=== PATIENT | female | born 1955 | race American Indian/Alaskan Native ===

== ENCOUNTER 2019-03-17 12:29 | Inpatient (IN) | payer BC ==
--- NOTE | 2019-03-17 14:47 | Emergency Department Report ---
ED Neuro Deficit HPI - General Chief Complaint: Dizziness Stated Complaint: DIZZY,BLURRED VISION Time Seen by Provider: 03/17/19 14:36 Source: patient, EMS Mode of arrival: Stretcher Limitations: No Limitations - History of Present Illness Initial Comments: Patient is 63 years old female with past medical history of asthma. Patient brought to the emergency room via EMS from home for evaluation of dizziness, ataxia and blurred vision started all of a sudden yesterday at 4 PM. Patient denied any weakness, numbness or tingling sensation. No slurred speech or aphasia. This and also denied any headache, fever or chills. No recent head injury. -: Last night (04:00 PM) Location: ataxia Presenting Symptoms: Present: Blurred/Loss of Vision History of same: No Place: home - Related Data Home Medications: Home Medications Medication Instructions Recorded Confirmed Last Taken Ibuprofen 800 mg PO BID 03/17/19 03/17/19 Unknown Montelukast 10 mg PO DAILY 03/17/19 03/17/19 Unknown Paroxetine 20 mg PO DAILY 03/17/19 03/17/19 Unknown Allergies/Adverse Reactions: Allergies Allergy/AdvReac Type Severity Reaction Status Date / Time coconut Allergy Anaphylaxis Verified 03/17/19 12:52 Sulfa (Sulfonamide Allergy Itching Verified 03/17/19 12:52 Antibiotics) tree nut Allergy Anaphylaxis Verified 03/17/19 12:52 ED Review of Systems ROS: Stated complaint: DIZZY,BLURRED VISION Other details as noted in HPI Comment: All other systems reviewed and negative Constitutional: denies: chills, fever Respiratory: denies: cough, shortness of breath, SOB with exertion, SOB at rest, wheezing Cardiovascular: denies: chest pain, palpitations Gastrointestinal: denies: abdominal pain, nausea, vomiting Neurological: denies: headache, weakness ED Past Medical Hx - Past Medical History Previous Medical History?: Yes Hx Asthma: Yes - Surgical History Past Surgical History?: Yes Additional Surgical History: Catarac, Hammer toe surgery, L ovary and L fallopian tube (1987) - Social History Smoking Status: Never Smoker Substance Use Type: None - Medications Home Medications: Home Medications Medication Instructions Recorded Confirmed Last Taken Type Ibuprofen 800 mg PO BID 03/17/19 03/17/19 Unknown History Montelukast 10 mg PO DAILY 12/22/19 12/22/19 Unknown History Paroxetine 20 mg PO DAILY 03/17/19 03/17/19 Unknown History ED Neuro Physical Exam - General Limitations: No Limitations General appearance: alert, in no apparent distress Suspected Stroke: Yes - Head Head exam: Present: atraumatic, normocephalic, normal inspection - Eye Eye exam: Present: normal appearance, PERRL - ENT ENT exam: Present: normal exam, normal orophraynx, mucous membranes moist - Neck Neck exam: Present: normal inspection, full ROM. Absent: tenderness, meningismus, lymphadenopathy, thyromegaly - Respiratory Respiratory exam: Present: normal lung sounds bilaterally - Cardiovascular Cardiovascular Exam: Present: regular rate, normal rhythm, normal heart sounds - GI/Abdominal GI/Abdominal exam: Present: soft, normal bowel sounds. Absent: distended, tenderness, guarding, rebound, rigid, organomegaly, mass, bruit, pulsatile mass, hernia - Extremities Exam Extremities exam: Present: normal inspection, full ROM, normal capillary refill. Absent: tenderness, pedal edema, joint swelling, calf tenderness - Back Exam Back exam: Present: normal inspection, full ROM. Absent: CVA tenderness (R), CVA tenderness (L) - Neurological Exam Neurological exam: Present: alert, oriented X3, CN II-XII intact. Absent: motor sensory deficit - NIHSS Assessment Interval: Baseline 1a. Level of Consciousness: alert/keenly responsive 1b. LOC Questions: answers both correctly 1c. LOC Commands: performs tasks correctly 2. Best Gaze: normal 3. Visual: no visual loss 4. Facial Palsy: normal symmetrical movement 5b. Motor Arm Right: no drift 5a. Motor Arm Left: no drift 6a. Motor Leg Left: no drift 6b. Motor Leg Right: no drift 7. Limb Ataxia: present 1 limb 8. Sensory: normal 9. Best Language: no aphasia 10. Dysarthria: normal 11. Extinction/Inattention: no abnormality Total Score: 1 Stroke Severity: Minor Stroke - Psychiatric Psychiatric exam: Present: normal mood - Skin Skin exam: Present: warm, intact, normal color ED Course Vital Signs 03/17/19 03/17/19 03/17/19 12:53 13:26 18:45 Temperature 98.1 F Pulse Rate 62 70 Respiratory 13 14 Rate Blood Pressure 139/76 135/85 [Left] O2 Sat by Pulse 96 Oximetry - Lab Data Result diagrams: 03/17/19 15:10 03/17/19 15:10 Lab Results 03/17/19 03/17/19 03/17/19 Range/Units 14:58 15:10 15:10 WBC 5.7 (4.5-11.0) K/mm3 RBC 5.19 H (3.65-5.03) M/mm3 Hgb 12.5 (10.1-14.3) gm/dl Hct 39.3 (30.3-42.9) % MCV 76 L (79-97) fl MCH 24 L (28-32) pg MCHC 32 (30-34) % RDW 15.8 H (13.2-15.2) % Plt Count 216 (140-440) K/mm3 Lymph % (Auto) 29.6 (13.4-35.0) % [place] % (Auto) 7.4 H (0.0-7.3) % Eos % (Auto) 2.5 (0.0-4.3) % Baso % (Auto) 1.5 (0.0-1.8) % Lymph # 1.7 (1.2-5.4) K/mm3 [place] # 0.4 (0.0-0.8) K/mm3 Eos # 0.1 (0.0-0.4) K/mm3 Baso # 0.1 (0.0-0.1) K/mm3 Seg Neutrophils % 59.0 (40.0-70.0) % Seg Neutrophils # 3.4 (1.8-7.7) K/mm3 PT 12.7 (12.2-14.9) Sec. INR 0.94 (0.87-1.13) APTT 27.9 (24.2-36.6) Sec. Thrombin Time 17.1 (15.1-19.6) Sec. Sodium (137-145) mmol/L Potassium (3.6-5.0) mmol/L Chloride (98-107) mmol/L Carbon Dioxide (22-30) mmol/L Anion Gap mmol/L BUN (7-17) mg/dL Creatinine (0.7-1.2) mg/dL Estimated GFR ml/min BUN/Creatinine Ratio % Glucose (65-100) mg/dL POC Glucose 121 H (70-105) Calcium (8.4-10.2) mg/dL Total Creatine Kinase (30-135) units/L CK-MB (CK-2) (0.0-4.0) ng/mL CK-MB (CK-2) Rel Index (0-4) Troponin T (0.00-0.029) ng/mL 03/17/19 Range/Units 15:10 WBC (4.5-11.0) K/mm3 RBC (3.65-5.03) M/mm3 Hgb (10.1-14.3) gm/dl Hct (30.3-42.9) % MCV (79-97) fl MCH (28-32) pg MCHC (30-34) % RDW (13.2-15.2) % Plt Count (140-440) K/mm3 Lymph % (Auto) (13.4-35.0) % [place] % (Auto) (0.0-7.3) % Eos % (Auto) (0.0-4.3) % Baso % (Auto) (0.0-1.8) % Lymph # (1.2-5.4) K/mm3 [place] # (0.0-0.8) K/mm3 Eos # (0.0-0.4) K/mm3 Baso # (0.0-0.1) K/mm3 Seg Neutrophils % (40.0-70.0) % Seg Neutrophils # (1.8-7.7) K/mm3 PT (12.2-14.9) Sec. INR (0.87-1.13) APTT (24.2-36.6) Sec. Thrombin Time (15.1-19.6) Sec. Sodium 142 (137-145) mmol/L Potassium 3.9 (3.6-5.0) mmol/L Chloride 106.4 (98-107) mmol/L Carbon Dioxide 25 (22-30) mmol/L Anion Gap 15 mmol/L BUN 16 (7-17) mg/dL Creatinine 0.8 (0.7-1.2) mg/dL Estimated GFR > 60 ml/min BUN/Creatinine Ratio 20 % Glucose 118 H (65-100) mg/dL POC Glucose (70-105) Calcium 9.0 (8.4-10.2) mg/dL Total Creatine Kinase 464 H (30-135) units/L CK-MB (CK-2) 2.6 (0.0-4.0) ng/mL CK-MB (CK-2) Rel Index 0.5 (0-4) Troponin T < 0.010 (0.00-0.029) ng/mL - EKG Data -: EKG Interpreted by Me EKG shows normal: sinus rhythm Rate: normal Interpretation: no acute changes - Radiology Data Radiology results: report reviewed - Medical Decision Making Patient is 63 years old female with past medical history of asthma. Patient brought to the emergency room via EMS from home for evaluation of dizziness, ataxia and blurred vision started all of a sudden yesterday at 4 PM. Patient denied any weakness, numbness or tingling sensation. No slurred speech or aphasia. This and also denied any headache, fever or chills. No recent head injury. Tele-neurology immediately consulted. Patient is not a TPA candidate. CT brain, CTA neck and head are negative for acute finding. Patient will be admitted to hospital for further management. I discussed the patient with Dr. Romero, handwritten admitted the patient to medical service for further management. - Thrombolytic Inclusion/Exclusion Thrombolytic Exclusion Criteria: Symptom Onset > 3 Hours Critical Care Time: Yes Critical care time in (mins) excluding proc time.: 30 Critical care attestation.: If time is entered above; I have spent that time in minutes in the direct care of this critically ill patient, excluding procedure time. ED Disposition Clinical Impression: Dizziness CVA (cerebral vascular accident) Qualifiers: Laterality of affected vessel: unspecified Disposition: -09 OP ADMIT IP TO THIS HOSP Is pt being admited?: Yes Condition: Stable
--- NOTE | 2019-03-17 15:01 | Emergency Department Report ---
ED Dizziness HPI - General Chief Complaint: Dizziness Stated Complaint: DIZZY,BLURRED VISION Time Seen by Provider: 03/17/19 14:36 Source: patient, family, EMS Mode of arrival: Stretcher Limitations: No Limitations - History of Present Illness Initial Comments: [facility] Date of Service: 03/17/2019 14:42:37 Impression: RO Acute Ischemic Stroke Comments: The patient has double/blurry vision since the night before, she has not been doing well. She has recently retired and celebrated yesterday with blurred vision tongight. CT head, negative as well as CTA head/neck is negative. Mechanism of Stroke: Possible Thromboembolic Metrics: Last Known Well: 03/16/2019 14:47:49 [employer] Notification Time: 03/17/2019 14:42:37 Arrival Time: 03/17/2019 12:29:00 Stamp Time: 03/17/2019 14:42:37 Time First Login Attempt: 03/17/2019 14:46:33 Video Start Time: 03/17/2019 14:46:33 Symptoms: @4pm yesterday she was feeling dizzy and was holding onto things NIHSS Start Assessment Time: 03/17/2019 14:47:35 Patient is not a candidate for tPA. Video End Time: 03/17/2019 14:58:52 CT head showed no acute hemorrhage or acute core infarct. Advanced imaging CTA head and neck obtained. Radiologist was called back for review of advanced imaging on 03/17/2019 14:48:02 ER Physician notified of the decision on thrombolytics management on 03/17/2019 14:48:00 Our recommendations are outlined below. Recommendations: Activate Stroke Protocol Admission/Order Set Stroke/Telemetry Floor Neuro Checks Bedside Swallow Eval DVT Prophylaxis IV Fluids, Normal Saline Head of Bed Below 30 Degrees Euglycemia and Avoid Hyperthermia (PRN Acetaminophen) Lipid Panel to Be Obtained, if Not Done in the Last Three Months Therapies: Physical Therapy, Occupational Therapy, Speech Therapy Assessment When Applicable Dysphaghia Screen: Swallow Evaluation, Bedside NPO Until Swallow Evaluation History of Present Illness: Patient is a 63 year old Female. Patient was brought by EMS for symptoms of @4pm yesterday she was feeling dizzy and was holding onto things She was tired, and this morning she felt that her vision was blurred, and blue cross blue shield. brought her to the emergency department. She retired, two days ago. She is a intermediate school teacher. CT head showed no acute hemorrhage or acute core infarct. Last seen normal was beyond 4.5 hours of presentation. There is no history of hemorrhagic complications or intracranial hemorrhage. There is no history of Recent Anticoagulants. There is no history of recent major surgery. There is no history of recent stroke. Examination: BP(139/76), Pulse(62), Blood Glucose(121) 1A: Level of Consciousness - Alert; keenly responsive + 0 1B: Ask Month and Age - Both Questions Right + 0 1C: Blink Eyes & Squeeze Hands - Performs Both Tasks + 0 2: Test Horizontal Extraocular Movements - Normal + 0 3: Test Visual Hirsch - No Visual Loss + 0 4: Test Facial Palsy (Use Grimace if Obtunded) - Normal symmetry + 0 5A: Test Left Arm Motor Drift - No Drift for 10 Seconds + 0 5B: Test Right Arm Motor Drift - No Drift for 10 Seconds + 0 6A: Test Left Leg Motor Drift - No Drift for 5 Seconds + 0 6B: Test Right Leg Motor Drift - Drift, but doesn't hit bed + 1 7: Test Limb Ataxia (FNF/Heel-Basurto) - No Ataxia + 1 8: Test Sensation - Normal; No sensory loss + 0 9: Test Language/Aphasia - Normal; No aphasia + 0 10: Test Dysarthria - Normal + 0 11: Test Extinction/Inattention - No abnormality + 0 NIHSS Score: 2 Patient was informed the Neurology Consult would happen via TeleHealth consult b y way [employer] and consented to receiving care in this manner. Due to the immediate potential for life-threatening deterioration due to underlying acute neurologic illness, I spent 35 minutes providing critical care. This time includes time for face to face visit via telemedicine, review of medical records, imaging studies and discussion of findings with providers, the patient and/or family. Dr Drew [facility] - Related Data Home Medications Medication Instructions Recorded Confirmed Last Taken Ibuprofen 800 mg PO BID 03/17/19 03/17/19 Unknown Montelukast 10 mg PO DAILY 03/17/19 03/17/19 Unknown Paroxetine 20 mg PO DAILY 03/17/19 03/17/19 Unknown Allergies Allergy/AdvReac Type Severity Reaction Status Date / Time coconut Allergy Anaphylaxis Verified 03/17/19 12:52 Sulfa (Sulfonamide Allergy Itching Verified 03/17/19 12:52 Antibiotics) tree nut Allergy Anaphylaxis Verified 03/17/19 12:52 ED Review of Systems ROS: Stated complaint: DIZZY,BLURRED VISION Other details as noted in HPI Constitutional: denies: chills, fever Respiratory: denies: cough, shortness of breath, SOB with exertion, SOB at rest, wheezing Cardiovascular: denies: chest pain, palpitations Gastrointestinal: denies: abdominal pain, nausea, vomiting Neurological: denies: headache, weakness ED Past Medical Hx - Past Medical History Previous Medical History?: Yes Hx Asthma: Yes - Surgical History Past Surgical History?: Yes Additional Surgical History: Catarac, Hammer toe surgery, L ovary and L fallopian tube (1987) - Social History Smoking Status: Never Smoker Substance Use Type: None - Medications Home Medications: Home Medications Medication Instructions Recorded Confirmed Last Taken Type Ibuprofen 800 mg PO BID 03/17/19 03/17/19 Unknown History Montelukast 10 mg PO DAILY 03/17/19 03/17/19 Unknown History Paroxetine 20 mg PO DAILY 03/17/19 03/17/19 Unknown History ED Physical Exam - General Limitations: No Limitations General appearance: alert, in no apparent distress ED Course Vital Signs 03/17/19 03/17/19 03/17/19 12:53 13:26 18:45 Temperature 98.1 F Pulse Rate 62 70 Respiratory 13 14 Rate Blood Pressure 139/76 135/85 [Left] O2 Sat by Pulse 96 Oximetry ED Medical Decision Making - Lab Data Result diagrams: 03/17/19 15:10 03/17/19 15:10 Critical care attestation.: If time is entered above; I have spent that time in minutes in the direct care of this critically ill patient, excluding procedure time. ED Disposition Clinical Impression: CVA (cerebral vascular accident), Dizziness Disposition: [id number] OP ADMIT IP TO THIS HOSP Condition: Stable
--- NOTE | 2019-03-17 15:39 | Cat Scan Report ---
CT head/brain wo con INDICATION / CLINICAL INFORMATION: 63 years Female; Stroke symptoms. TECHNIQUE: Routine CT head without contrast. All CT scans at this location are performed using CT dos e reduction for ALARA by means of automated exposure control. COMPARISON: None. FINDINGS: BRAIN / INTRACRANIAL CONTENTS: No acute hemorrhage, mass effect, midline shift, hydrocephalus, or acu te, large territorial infarct. No chronic infarct or atrophy appreciated. There are minimal areas of increased signal intensity on FLAIR imaging in the white matter of the cer ebral hemispheres. These are nonspecific findings and may be related to microangiopathy (hypertension , diabetes, atherosclerosis), given the patient's age. CRANIOCERVICAL JUNCTION: No significant abnormality. ORBITS: No significant abnormality of visualized orbits. SINUSES / MASTOIDS: No significant abnormality the visualized paranasal sinuses or mastoid air cells. ADDITIONAL FINDINGS: Gas seen in the left cavernous sinus, presumably related to IV placement. IMPRESSION: 1. No focal mass, hemorrhage, hydrocephalus, or acute, large territorial infarct. This exam was performed as part of a code stroke protocol. The exam was completed on 03/17/2019 2:28 PM. The exam was reviewed at 2:30 PM and Boaz was notified at 2:34 PM. Signer Name: Kamron Levi MD, III Signed: 03/17/2019 3:34 PM Workstation Name: [id number]
[2019-03-17 15:46] LABS: Creatine Kinase MB 2.6 ng/mL (0.0-4.0)
[2019-03-17 15:47] LABS: BUN/Creatinine Ratio 20; Blood Urea Nitrogen 16 mg/dL (7-17); Hemolysis Index 29
[2019-03-17 15:54] LABS: Basophils # (Auto) 0.1 K/mm3 (0.0-0.1); Basophils % (Auto) 1.5 % (0.0-1.8); Eosinophils # (Auto) 0.1 K/mm3 (0.0-0.4); Eosinophils % (Auto) 2.5 % (0.0-4.3); Hematocrit 39.3 % (30.3-42.9); Hemoglobin 12.5 gm/dl (10.1-14.3); Lymphocytes # (Auto) 1.7 K/mm3 (1.2-5.4); Lymphocytes % (Auto) 29.6 % (13.4-35.0); Mean Corpuscular HGB Conc 32 % (30-34); Mean Corpuscular Volume 76 fl (79-97); Monocytes # (Auto) 0.4 K/mm3 (0.0-0.8); Monocytes % (Auto) 7.4 % (0.0-7.3); Platelet Count 216 K/mm3 (140-440); Red Blood Count 5.19 M/mm3 (3.65-5.03); Red Cell Distribution Width 15.8 % (13.2-15.2)
[2019-03-17 16:04] LABS: INR 0.94 (0.87-1.13)
[2019-03-17 16:05] LABS: Partial Thromboplastin Time 27.9 Sec. (24.2-36.6); Thrombin Time 17.1 Sec. (15.1-19.6)
--- NOTE | 2019-03-17 16:19 | Progress Note ---
Subjective Date of service: 03/17/19 Interval history: strokle alert and spoke with tech's as patient observed to have AMS sent to CT after delay amnf review of CT shoes nothing but mild frontal cortical atrophy that is lkely normal for age hx is patient recently retired further work up pending reviewed the images with compressor technician after image system directly further asses post ED determinations etc. Objective - Vital Sign Vital Signs - 12hr 03/17/19 03/17/19 12:53 13:26 Temperature 98.1 F Pulse Rate 62 Respiratory 13 14 Rate Blood Pressure 139/76 [Left] O2 Sat by Pulse 96 Oximetry - Laboratory Findings CBC and BMP: 03/17/19 15:10 03/17/19 15:10 Abnormal Lab Findings: Abnormal Labs 03/17/19 03/17/19 03/17/19 14:58 15:10 15:10 RBC 5.19 H MCV 76 L MCH 24 L RDW 15.8 H [place] % (Auto) 7.4 H Glucose 118 H POC Glucose 121 H Total Creatine Kinase 464 H
--- NOTE | 2019-03-17 16:25 | Cat Scan Report ---
CT angio head INDICATION / CLINICAL INFORMATION: 63 years Female; MAIN: stroke [id number] 100ML. TECHNIQUE: Thin cut axial images obtained through the head during IV bolus contrast administration. S agittal, coronal, and 3 plane MIP reconstructions performed by the technologist. NASCET type criteria used evaluate stenoses. Automated exposure control utilized for radiation reduction purposes. COMPARISON: None available. FINDINGS: INTERNAL CAROTID ARTERIES: No significant narrowing appreciated. VERTEBROBASILAR SYSTEM: No significant narrowing appreciated. DISTAL BRANCHES: Distal branches of the anterior, middle, and posterior cerebral arteries are fairly symmetric in appearance and number. ANEURYSM: None identified. ADDITIONAL FINDINGS: Remainder of the surrounding soft tissues are grossly normal. IMPRESSION: No significant narrowing appreciated on this CTA of the head. Signer Name: Kamron Levi MD, III Signed: 03/17/2019 4:21 PM Workstation Name: [id number]
--- NOTE | 2019-03-17 16:28 | Cat Scan Report ---
CT angio neck INDICATION / CLINICAL INFORMATION: 63 years Female; stroke. TECHNIQUE: Thin cut axial images obtained through the head during IV bolus contrast administration. S agittal, coronal, and 3 plane MIP reconstructions performed by the technologist. NASCET type criteria used evaluate stenoses. All CT scans at this location are performed using CT dose reduction for ALAR A by means of automated exposure control. COMPARISON: None available. FINDINGS: ARCH: Normal aortic arch branching seen. Note, the left vertebral artery has its origin from the aort ic arch, proximal to the origin of the subclavian artery-normal variant. CAROTID ARTERIES: The visualized common and internal carotid arteries are widely patent. VERTEBRAL ARTERIES: Codominant vertebral system seen. No significant stenosis appreciated. ADDITIONAL FINDINGS: Remainder of the surrounding soft tissues are grossly normal. Small gas bubbles are seen in the left cavernous sinus, presumably related to recent IV placement. IMPRESSION: No significant stenosis appreciated on this CTA of the neck. Signer Name: Kamron Levi MD, III Signed: 03/17/2019 4:23 PM Workstation Name: [id number]
--- NOTE | 2019-03-17 21:47 | History and Physical Report ---
"History of Present Illness Date of examination: 03/17/19 Date of admission: 03/17/19 17:22 Chief complaint: Dizziness and unsteady gait since yesterday for 4 p.m. History of present illness: 63-year-old female with history of asthma comes to the emergency room for di zziness and unsteady gait and blurring of vision since yesterday at 4 PM. No slurred speech. No nasal regurgitation of fluids. No syncope or seizures. Now patient able to walk slowly. No slurred speech. No diplopia. Past Medical History Previous Medical History?: Yes Hx Asthma: Yes Surgical History Past Surgical History?: Yes Additional Surgical History: Catarac, Hammer toe surgery, L ovary and L fallopian tube (1987) Social History Smoking Status: Never Smoker Substance Use Type: None Family History Htn Review of Systems ROS: Stated complaint: DIZZY,BLURRED VISION Other details as noted in HPI Comment: All other systems reviewed and negative Constitutional: denies: chills, fever Respiratory: denies: cough, shortness of breath, SOB with exertion, SOB at rest, wheezing Cardiovascular: denies: chest pain, palpitations Gastrointestinal: denies: abdominal pain, nausea, vomiting Neurological: denies: headache, weakness 14 point review of systems done- otherwise negative Medications and Allergies Allergies Allergy/AdvReac Type Severity Reaction Status Date / Time coconut Allergy Anaphylaxis Verified 03/17/19 12:52 Sulfa (Sulfonamide Allergy Itching Verified 03/17/19 12:52 Antibiotics) tree nut Allergy Anaphylaxis Verified 03/17/19 12:52 Home Medications Medication Instructions Recorded Confirmed Last Taken Type Ibuprofen 800 mg PO BID 03/17/19 03/17/19 Unknown History Montelukast 10 mg PO DAILY 03/17/19 03/17/19 Unknown History Paroxetine 20 mg PO DAILY 03/17/19 03/17/19 Unknown History Exam - Constitutional Vitals: Temp Pulse Resp BP Pulse Ox 98.3 F 64 16 121/73 96 03/17/19 20:14 03/17/19 20:14 03/17/19 20:14 03/17/19 20:14 03/17/19 20:14 General appearance: Present: no acute distress, well-nourished - EENT Eyes: Present: PERRL ENT: hearing intact, clear oral mucosa - Neck Neck: Present: supple, normal ROM - Respiratory Respiratory effort: normal Respiratory: bilateral: CTA - Cardiovascular Heart rate: 62 Rhythm: regular Heart Sounds: Present: S1 & S2. Absent: rub, click - Extremities Extremities: no ischemia, pulses intact, pulses symmetrical, No edema Peripheral Pulses: within normal limits - Abdominal General gastrointestinal: Present: soft, non-tender, non-distended, normal bowel sounds Female genitourinary: Present: normal - Rectal Rectal Exam: deferred - Integumentary Integumentary: Present: clear, warm, dry - Musculoskeletal Musculoskeletal: gait normal, strength equal bilaterally - Psychiatric Psychiatric: appropriate mood/affect, intact judgment & insight - Neurologic Neurologic: CNII-XII intact, moves all extremities - Allied Health Allied health notes reviewed: nursing, case management Results - Labs CBC & Chem 7: 03/17/19 15:10 03/17/19 15:10 Labs: Laboratory Last Values WBC 5.7 K/mm3 (4.5-11.0) 03/17/19 15:10 RBC 5.19 M/mm3 (3.65-5.03) H 03/17/19 15:10 Hgb 12.5 gm/dl (10.1-14.3) 03/17/19 15:10 Hct 39.3 % (30.3-42.9) 03/17/19 15:10 MCV 76 fl (79-97) L 03/17/19 15:10 MCH 24 pg (28-32) L 03/17/19 15:10 MCHC 32 % (30-34) 03/17/19 15:10 RDW 15.8 % (13.2-15.2) H 03/17/19 15:10 Plt Count 216 K/mm3 (140-440) 03/17/19 15:10 Lymph % (Auto) 29.6 % (13.4-35.0) 03/17/19 15:10 [place] % (Auto) 7.4 % (0.0-7.3) H 03/17/19 15:10 Eos % (Auto) 2.5 % (0.0-4.3) 03/17/19 15:10 Baso % (Auto) 1.5 % (0.0-1.8) 03/17/19 15:10 Lymph # 1.7 K/mm3 (1.2-5.4) 03/17/19 15:10 [place] # 0.4 K/mm3 (0.0-0.8) 03/17/19 15:10 Eos # 0.1 K/mm3 (0.0-0.4) 03/17/19 15:10 Baso # 0.1 K/mm3 (0.0-0.1) 03/17/19 15:10 Seg Neutrophils % 59.0 % (40.0-70.0) 03/17/19 15:10 Seg Neutrophils # 3.4 K/mm3 (1.8-7.7) 03/17/19 15:10 PT 12.7 Sec. (12.2-14.9) 03/17/19 15:10 INR 0.94 (0.87-1.13) 03/17/19 15:10 APTT 27.9 Sec. (24.2-36.6) 03/17/19 15:10 Thrombin Time 17.1 Sec. (15.1-19.6) 03/17/19 15:10 Sodium 142 mmol/L (137-145) 03/17/19 15:10 Potassium 3.9 mmol/L (3.6-5.0) 03/17/19 15:10 Chloride 106.4 mmol/L (98-107) 03/17/19 15:10 Carbon Dioxide 25 mmol/L (22-30) 03/17/19 15:10 Anion Gap 15 mmol/L 03/17/19 15:10 BUN 16 mg/dL (7-17) 03/17/19 15:10 Creatinine 0.8 mg/dL (0.7-1.2) 03/17/19 15:10 Estimated GFR > 60 ml/min 03/17/19 15:10 BUN/Creatinine Ratio 20 % 03/17/19 15:10 Glucose 118 mg/dL (65-100) H 03/17/19 15:10 POC Glucose 121 (70-105) H 03/17/19 14:58 Calcium 9.0 mg/dL (8.4-10.2) 03/17/19 15:10 Total Creatine Kinase 464 units/L (30-135) H 03/17/19 15:10 CK-MB (CK-2) 2.6 ng/mL (0.0-4.0) 03/17/19 15:10 CK-MB (CK-2) Rel Index 0.5 (0-4) 03/17/19 15:10 Troponin T < 0.010 ng/mL (0.00-0.029) 03/17/19 15:10 - Imaging and Cardiology EKG: report reviewed (Sinus rhythm, heart rate of 62/min) CT Scan - head: report reviewed Imaging and Cardiology: Head CT | Neck CTA |------ no acute findings Head CT | Assessment and Plan Advance Directives: Yes (Full code) VTE prophylaxis?: Chemical Plan of care discussed with patient/family: Yes - Patient Problems (1) CVA (cerebral vascular accident) Current Visit: Yes Status: Acute Qualifiers: Laterality of affected vessel: unspecified Plan to address problem: Ataxia resolved Possible TIA TIA work-up MRI ordered MRI of the head and neck normal Echocardiogram Carotid duplex scan ordered Aspirin 81 mg once a day Plavix 75 mg once a day (2) Hyperglycemia Current Visit: Yes Status: Acute Plan to address problem: Rule out diabetes check hemoglobin A1c (3) Asthma Current Visit: Yes Status: Inactive Qualifiers: Asthma complication type: unspecified Plan to address problem: Bronchodilators if necessary (4) DVT prophylaxis Current Visit: Yes Status: Acute Plan to address problem: Heparin and GI prophylaxis initiated"
[2019-03-17] MEDS ORDERED: NON-FORMULARY EACH (Ibuprofen 800 MG) PO SCH (22:15)
[2019-03-17] MEDS: IBUPROFEN 800 MG TAB PO SCH (22:31)
[2019-03-18 07:51] LABS: Chol/HDL Ratio 4.63 %
--- NOTE | 2019-03-18 08:07 | Progress Note ---
Subjective Date of service: 03/18/19 Interval history: patient seen on neurology follow up and at this point all symptoms have cleared vertigo and blurred vision were cc she has hx of hypertension rec get MRI and ECHO could be TIA or brain stem stroke also consider labrynthitis Objective - Vital Sign Vital Signs - 12hr 03/17/19 03/17/19 03/17/19 20:14 22:34 23:15 Temperature 98.3 F 98.2 F Pulse Rate 64 65 Respiratory 16 16 Rate Blood Pressure 121/73 118/69 O2 Sat by Pulse 96 100 97 Oximetry 03/18/19 02:44 Temperature 97.6 F Pulse Rate 60 Respiratory 16 Rate Blood Pressure 133/68 O2 Sat by Pulse 93 Oximetry - Laboratory Findings CBC and BMP: 03/17/19 15:10 03/17/19 15:10 Abnormal Lab Findings: Abnormal Labs 03/17/19 03/17/19 03/17/19 14:58 15:10 15:10 RBC 5.19 H MCV 76 L MCH 24 L RDW 15.8 H [place] % (Auto) 7.4 H Glucose 118 H POC Glucose 121 H Total Creatine Kinase 464 H Cholesterol LDL Cholesterol Direct 03/18/19 06:52 RBC MCV MCH RDW [place] % (Auto) Glucose POC Glucose Total Creatine Kinase Cholesterol 218 H LDL Cholesterol Direct 154 H
[2019-03-18] MEDS ORDERED: NON-FORMULARY EACH (Montelukast 10 MG) PO SCH (10:00)
[2019-03-18] MEDS ORDERED: NON-FORMULARY EACH (Paroxetine 20 MG) PO SCH (10:00)
--- NOTE | 2019-03-18 10:54 | Magnetic Resonance Report ---
MRI BRAIN WITHOUT CONTRAST INDICATION / CLINICAL INFORMATION: stroke. TECHNIQUE: Multisequence, multiplanar images were obtained. COMPARISON: CT head dated 03/17/2019 FINDINGS: CEREBRAL and CEREBELLAR HEMISPHERES: No evidence of mass or mass effect. No midline shift. No acute hemorrhage. No diffusion restriction to suggest acute infarct. No extra-axial fluid collection. M inimal nonspecific chronic white matter changes are identified bilaterally which are most pronounced in the parietal regions. VENTRICLES: Normal in size and configuration for age. VISUALIZED ORBITS: No significant abnormality. VISUALIZED PARANASAL SINUSES: No significant abnormality. ADDITIONAL FINDINGS: None. IMPRESSION: No acute intracranial process. Chronic white matter changes as described above. Signer Name: Felix Cai Jr, MD Signed: 03/18/2019 10:49 AM Workstation Name: [id number]
[2019-03-18] MEDS: IBUPROFEN 800 MG TAB PO SCH ×2 (12:14→22:47)
[2019-03-18] MEDS: PARoxetine 20 MG TAB PO SCH (12:15)
--- NOTE | 2019-03-18 13:31 | Vascular Lab Report ---
"DUPLEX DOPPLER ULTRASOUND CAROTID, BILATERAL INDICATION: stroke. FINDINGS: RIGHT CAROTID: No significant atherosclerotic plaque. Right CCA velocity: 80 cm/sec. Right ICA peak systolic velocity: 92 cm/sec. ICA/CCA PSV Ratio: 1.2. Right Vertebral Artery: Antegrade flow. LEFT CAROTID: No significant atherosclerotic plaque. Left CCA velocity: 68 cm/sec. Left ICA peak systolic velocity: 74 cm/sec. ICA/CCA PSV Ratio: 1.1. Left Vertebral Artery: Antegrade flow. IMPRESSION: 1. Right Internal Carotid Artery: Less than 50% diameter stenosis. 2. Left Internal Carotid Artery: Less than 50% diameter stenosis. Velocity criteria are extrapolated from diameter data as defined by the Society of Radiologists in Ul trasound Consensus Conference, Radiology 2003; 229;340-346. Degree of Stenosis (%) || ICA PSV (cm/sec) || Plaque estimate (%) || ICA/CCA PSV Ratio Normal <125 None <2.0 <50 <125 <50 <2.0 50-69 125-230 50 2.0-4.0 70 but less than 100 >230 50 >4.0 Near occlusion High, low, or none visible variable Total occlusion None visible; no lumen N/A Signer Name: Jersey Blackmon MD Signed: 03/18/2019 1:27 PM Workstation Name: [id number]"
--- NOTE | 2019-03-18 16:18 | Progress Note ---
Subjective Date of service: 03/18/19 Interval history: went over the MRI of the brain and there is no acute infarct this patient can go home provided carotid ultrasound normal and ECHO is OK vertigo likely no stroke neuro exam is normal Objective - Vital Sign Vital Signs - 12hr 03/18/19 03/18/19 07:55 12:18 Temperature 97.6 F Pulse Rate 72 Respiratory 18 18 Rate Blood Pressure 116/85 O2 Sat by Pulse 96 Oximetry - Laboratory Findings CBC and BMP: 03/17/19 15:10 03/17/19 15:10 Abnormal Lab Findings: Abnormal Labs 03/17/19 03/17/19 03/17/19 14:58 15:10 15:10 RBC 5.19 H MCV 76 L MCH 24 L RDW 15.8 H [place] % (Auto) 7.4 H Glucose 118 H POC Glucose 121 H Total Creatine Kinase 464 H Cholesterol LDL Cholesterol Direct 03/18/19 06:52 RBC MCV MCH RDW [place] % (Auto) Glucose POC Glucose Total Creatine Kinase Cholesterol 218 H LDL Cholesterol Direct 154 H
--- NOTE | 2019-03-18 16:22 | Progress Note ---
Assessment and Plan Assessment and plan: --Possible acute CVA (cerebral vascular accident) Current Visit: Yes Status: Acute Not a candidate for TPA . Aspirin,Plavix as well as statin Neurochecks, MRI/MRA Carotid Doppler, echocardiogram Physical therapy occupational therapy and rehabilitation Neurology consult Workup so far: CT head; no focal mass hemorrhage hydrocephalus or acute large infarct MRI brain no acute intracranial abnormality chronic white matter changes CTA head; no significant narrowing CTA neck.: no Significant stenosis --Hyperglycemia Current Visit: Yes Status: Acute Acute sliding scale coverage ADA diet insulin as needed Check A1c --History of bronchial Asthma Current Visit: Yes Status: Inactive Bronchodilators if necessary Oxygen titrate O2 sats to more than 90% --Morbid obesity; BMI 41.4: advised dietary modification and exercise as tolerated and weight reduction when medically stable --DVT prophylaxis Current Visit: Yes Status: Acute Heparin GI prophylaxis Protonix The rest of the neuro workup, PT and OT Monitor closely and adjust management as needed Plan of care is reviewed with the patient and her nurse Disposition; discharged in 1-2 days if stable History Interval history: Patient seen and examined medical records reviewed Admitted with dizziness and blurred vision, possible acute CVA Patient is not a candidate for TPA, extensive neuro workup is in progress Patient's feels slightly better, blunting of vision is clearing Denies chest pain or shortness of breath Vital signs noted Hospitalist Physical - Constitutional Vitals: Temp Pulse Resp BP Pulse Ox 97.6 F 72 18 116/85 96 03/18/19 12:18 03/18/19 12:18 03/18/19 12:18 03/18/19 12:18 03/18/19 12:18 General appearance: Present: no acute distress, well-nourished - EENT Eyes: Present: PERRL, EOM intact - Neck Neck: Present: supple, normal ROM - Respiratory Respiratory effort: normal Respiratory: bilateral: diminished, negative: rales, rhonchi, wheezing - Cardiovascular Rhythm: regular Heart Sounds: Present: S1 & S2 - Extremities Extremities: no ischemia, No edema - Abdominal General gastrointestinal: soft, non-tender, non-distended, normal bowel sounds - Integumentary Integumentary: Present: clear, warm - Psychiatric Psychiatric: appropriate mood/affect, cooperative - Neurologic Neurologic: moves all extremities Results - Labs CBC & Chem 7: 03/17/19 15:10 03/17/19 15:10 Labs: Laboratory Last Values WBC 5.7 K/mm3 (4.5-11.0) 03/17/19 15:10 RBC 5.19 M/mm3 (3.65-5.03) H 03/17/19 15:10 Hgb 12.5 gm/dl (10.1-14.3) 03/17/19 15:10 Hct 39.3 % (30.3-42.9) 03/17/19 15:10 MCV 76 fl (79-97) L 03/17/19 15:10 MCH 24 pg (28-32) L 03/17/19 15:10 MCHC 32 % (30-34) 03/17/19 15:10 RDW 15.8 % (13.2-15.2) H 03/17/19 15:10 Plt Count 216 K/mm3 (140-440) 03/17/19 15:10 Lymph % (Auto) 29.6 % (13.4-35.0) 03/17/19 15:10 [place] % (Auto) 7.4 % (0.0-7.3) H 03/17/19 15:10 Eos % (Auto) 2.5 % (0.0-4.3) 03/17/19 15:10 Baso % (Auto) 1.5 % (0.0-1.8) 03/17/19 15:10 Lymph # 1.7 K/mm3 (1.2-5.4) 03/17/19 15:10 [place] # 0.4 K/mm3 (0.0-0.8) 03/17/19 15:10 Eos # 0.1 K/mm3 (0.0-0.4) 03/17/19 15:10 Baso # 0.1 K/mm3 (0.0-0.1) 03/17/19 15:10 Seg Neutrophils % 59.0 % (40.0-70.0) 03/17/19 15:10 Seg Neutrophils # 3.4 K/mm3 (1.8-7.7) 03/17/19 15:10 PT 12.7 Sec. (12.2-14.9) 03/17/19 15:10 INR 0.94 (0.87-1.13) 03/17/19 15:10 APTT 27.9 Sec. (24.2-36.6) 03/17/19 15:10 Thrombin Time 17.1 Sec. (15.1-19.6) 03/17/19 15:10 Sodium 142 mmol/L (137-145) 03/17/19 15:10 Potassium 3.9 mmol/L (3.6-5.0) 03/17/19 15:10 Chloride 106.4 mmol/L (98-107) 03/17/19 15:10 Carbon Dioxide 25 mmol/L (22-30) 03/17/19 15:10 Anion Gap 15 mmol/L 03/17/19 15:10 BUN 16 mg/dL (7-17) 03/17/19 15:10 Creatinine 0.8 mg/dL (0.7-1.2) 03/17/19 15:10 Estimated GFR > 60 ml/min 03/17/19 15:10 BUN/Creatinine Ratio 20 % 03/17/19 15:10 Glucose 118 mg/dL (65-100) H 03/17/19 15:10 POC Glucose 121 (70-105) H 03/17/19 14:58 Calcium 9.0 mg/dL (8.4-10.2) 03/17/19 15:10 Total Creatine Kinase 464 units/L (30-135) H 03/17/19 15:10 CK-MB (CK-2) 2.6 ng/mL (0.0-4.0) 03/17/19 15:10 CK-MB (CK-2) Rel Index 0.5 (0-4) 03/17/19 15:10 Troponin T < 0.010 ng/mL (0.00-0.029) 03/17/19 15:10 Triglycerides 106 mg/dL (2-149) 03/18/19 06:52 Cholesterol 218 mg/dL (50-199) H 03/18/19 06:52 LDL Cholesterol Direct 154 mg/dL (50-130) H 03/18/19 06:52 HDL Cholesterol 47 mg/dL (40-59) 03/18/19 06:52 Cholesterol/HDL Ratio 4.63 % 03/18/19 06:52 Active Medications - Current Medications Current Medications: Generic Name Dose Route Start Last Admin Trade Name Freq PRN Reason Stop Dose Admin Aspirin 81 mg 03/18/19 16:00 Baby Aspirin PO QDAY [facility] Atorvastatin Calcium 40 mg 03/18/19 22:00 Lipitor PO QHS [facility] Clopidogrel Bisulfate 75 mg 03/18/19 16:00 Plavix PO QDAY [facility] Ibuprofen 800 mg 03/17/19 22:15 03/18/19 12:14 Ibuprofen PO 800 mg BID [facility] Administration Montelukast Sodium 10 mg 03/18/19 18:00 Singulair PO QPM [facility] Paroxetine HCl 20 mg 03/18/19 10:00 03/18/19 12:15 Paxil PO 20 mg DAILY [facility] Administration Pneumococcal Polyvalent Vaccine 0.5 ml 03/19/19 12:00 Pneumovax 23 IM 03/19/19 12:01 .ONCE ONE Sodium Chloride 10 ml 03/17/19 22:15 03/18/19 12:15 Sodium Chloride Flush Syringe 10 Ml IV 10 ml PRN PRN Administration LINE FLUSH Nutrition/Malnutrition Assess - Dietary Evaluation Nutrition/Malnutrition Findings: Nutrition Notes Start: 03/18/19 15:24 Freq: Status: Active Protocol: Document 03/18/19 15:24 LM (Rec: 03/18/19 15:25 LM [id number]) Nutrition Notes Need for Assessment generated from: filter bed placer Initial or Follow up Brief Note Subjective/Other Information RN screen foe skin risk. No orion score in chart and no documentation of wound. Nutrition Intervention Revisit per MD consult or patient Sign Off request:
[2019-03-18] MEDS: CLOPIDOGREL 75 MG TAB PO SCH (16:32)
[2019-03-18] MEDS: ASPIRIN 81 MG TAB CHEW PO SCH (16:32)
[2019-03-18] MEDS ORDERED: MONTELUKAST 10 MG TAB PO SCH (18:00)
[2019-03-19 04:34] VITALS: BP 154/80
[2019-03-19] MEDS: IBUPROFEN 800 MG TAB PO SCH (09:43)
[2019-03-19] MEDS: ASPIRIN 81 MG TAB CHEW PO SCH (09:43)
[2019-03-19] MEDS: PARoxetine 20 MG TAB PO SCH (09:43)
[2019-03-19] MEDS: CLOPIDOGREL 75 MG TAB PO SCH (09:43)
--- NOTE | 2019-03-19 10:48 | Progress Note ---
Subjective Date of service: 03/19/19 Interval history: went over the ECHO/ CAROTID US AND CTA OF NECK... clearly patient did not have a stroke likely problem diabetes and elevated cholesterol and increased CPK that may be post viral advise discharge I will follow up in the office Objective - Vital Sign Vital Signs - 12hr 03/19/19 03/19/19 03/19/19 03:39 06:25 06:34 Temperature 97.6 F Pulse Rate 59 L 60 Respiratory 16 18 Rate Blood Pressure 154/80 O2 Sat by Pulse 96 Oximetry - Laboratory Findings CBC and BMP: 03/17/19 15:10 03/17/19 15:10 Abnormal Lab Findings: Abnormal Labs 03/17/19 03/17/19 03/17/19 14:58 15:10 15:10 RBC 5.19 H MCV 76 L MCH 24 L RDW 15.8 H [place] % (Auto) 7.4 H Glucose 118 H POC Glucose 121 H Total Creatine Kinase 464 H Cholesterol LDL Cholesterol Direct 03/18/19 06:52 RBC MCV MCH RDW [place] % (Auto) Glucose POC Glucose Total Creatine Kinase Cholesterol 218 H LDL Cholesterol Direct 154 H
[2019-03-19] MEDS ORDERED: PNEUMOCOCCAL 23 Valent 0.5 ML VIAL IM ONE (12:00)
[2019-03-19] MEDS ORDERED: FLU VACC QUAD 2019-20 (3 YR UP)/PF 60 MCG/0.5 ML SYRINGE IM ONE (12:00)
--- NOTE | 2019-03-19 13:14 | Discharge Summary ---
Providers - Providers Date of Admission: 03/17/19 17:22 Date of discharge: 03/19/19 Attending physician: ALYSSA OCONNOR 03/17/19 22:15 Occupational Therapy Evaluate and Treat [CONS] Routine Comment: Reason For Exam: Neuro deficits Physical Therapy Evaluation and Treat [CONS] Routine Comment: Reason For Exam: Neuro deficits 03/17/19 22:20 Consult to Physician [CONS] Routine Comment: Consulting Provider: TAJ JAMES Physician Instructions: Reason For Exam: TIA/CVA Primary care physician: OBSTETRIC ANAESTHETIST Hospitalization Condition: Stable Pertinent studies: CT head; no focal mass hemorrhage hydrocephalus or acute large infarct MRI brain no acute intracranial abnormality chronic white matter changes CTA head; no significant narrowing CTA neck.: no Significant stenosis Carotid Doppler: no Significant stenosis echocardiogram: preserved EF Hospital course: 63-year-old female with history of asthma comes to the emergency room for dizziness and unsteady gait and blurring of vision , No syncope or seizures. On admission patient was able to walk slowly. She was admitted for further evaluation and Mx. Discharge Diagnosis and Mx: /TIA, likely vs vasovagal presyncope Not a candidate for TPA . placed on Aspirin,Plavix as well as statin Workup so far: CT head; no focal mass hemorrhage hydrocephalus or acute large infarct MRI brain no acute intracranial abnormality chronic white matter changes CTA head; no significant narrowing CTA neck.: no Significant stenosis Carotid Doppler: no sig stenosis echocardiogram: preserved Ef Physical therapy occupational therapy and Neurology consulted PT recommended no home needs patient was then discharged home in stable condition /Hyperglycemia, prediabetic - recommended dietary control /History of bronchial Asthma Bronchodilators if necessary Oxygen titrate O2 sats to more than 90% /-Morbid obesity; BMI 41.4: advised dietary modification and exercise as tolerated and weight reduction when medically stable /DVT prophylaxis Heparin GI prophylaxis Protonix Disposition; Home Hospitalist Physical General appearance: Present: no acute distress, well-nourished - EENT Eyes: Present: PERRL, EOM intact - Neck Neck: Present: supple, normal ROM - Respiratory Respiratory effort: normal Respiratory: bilateral: diminished, negative: rales, rhonchi, wheezing - Cardiovascular Rhythm: regular Heart Sounds: Present: S1 & S2 - Extremities Extremities: no ischemia, No edema - Abdominal General gastrointestinal: soft, non-tender, non-distended, normal bowel sounds - Integumentary Integumentary: Present: clear, warm - Psychiatric Psychiatric: appropriate mood/affect, cooperative - Neurologic Neurologic: moves all extremities Disposition: DC-01 TO HOME OR SELFCARE Time spent for discharge: 34 minutes Core Measure Documentation - Palliative Care Palliative Care/ Comfort Measures: Not Applicable - Core Measures Any of the following diagnoses?: none Exam - Constitutional Vitals: Temp Pulse Resp BP Pulse Ox 97.6 F 60 18 124/80 96 03/19/19 03:39 03/19/19 06:25 03/19/19 06:34 03/19/19 03:39 03/19/19 03:39 Plan Activity: advance as tolerated Weight Bearing Status: Weight Bear as Tolerated Diet: low fat, diabetic Special Instructions: record blood sugar diary Follow up with: PRIMARY MD KORY [Primary Care Provider] - 3-5 Days JUJU VAZQUEZ MD [Staff Physician] - 7 Days Prescriptions: AtorvaSTATin [Lipitor] 40 mg PO QHS #30 tablet Aspirin [Aspirin BABY CHEW TAB] 81 mg PO QDAY #30 tab.chew
--- NOTE | 2019-03-19 16:20 | Consultation ---
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 Review of her admission CT, MRI was unremarkable, did review over her CTA of the neck and aorta, does not show any demonstrable lesions. The vertebrals are patent. The carotids are patent. The aorta does not show any lesions. Significantly, no atherosclerotic lesions are present. LABORATORY DATA: Shows slight elevation in glucose. Interestingly, her CPK is elevated in the range of 468. MCV is also noted to be 76, but the hematocrit is not appreciably reduced. NEUROLOGICAL: Examination at this point is entirely normal. Cranial nerves intact. Speech clear. Affect appropriate. Neck supple. Cranial nerves 2-12 are intact. Hearing is normal. IMPRESSION: This patient had a TIA type attack, likely related to hyperglycemia, hypercholesterolemia. I do not see evidence of any vascular occlusive disease. This may be simply related to some also possible flu-like illness with the CPK being elevated. It is a very curious finding and obviously is not ____ directly to the vertigo or the collapse, but may be indirectly related to some other factor that needs to be addressed. PLAN: I will plan to follow up with her in the office. She may be discharged at this time. JOB# [id number] CASE/NTS
== END 2019-03-19 14:49 | disposition home or self-care (01) | DRG 69 ==
LOC: ED 12:29 → 4A 17:22
PROVIDERS: ADMIT Internal Medicine; ATTEND Internal Medicine
PROC: 3E0234Z Introduction of Serum, Toxoid and Vaccine into Muscle, Percutaneous Approach (ICD-10-PCS; principal; 2019-03-19)
DX: G45.9 Transient cerebral ischemic attack, unspecified (principal); Z68.41 Body mass index [BMI] 40.0-44.9, adult; E66.01 Morbid (severe) obesity due to excess calories; E11.65 Type 2 diabetes mellitus with hyperglycemia; J45.909 Unspecified asthma, uncomplicated; I10 Essential (primary) hypertension; Z82.49 Family history of ischemic heart disease and other diseases of the circulatory system; Z71.3 Dietary counseling and surveillance; Z88.2 Allergy status to sulfonamides; Z79.899 Other long term (current) drug therapy; Z23 Encounter for immunization
CPT/HCPCS: 36415; 70450; 70496; 70498; 70551; 80048; 80061; 82550; 82553; 82962; 84484; 85025; 85610; 85670; 85730; 90686; 90732; 93005; 93010; 93306; 93880; G0378; A9270-GY; Q9967